=== PATIENT | female | born 1975 | race Caucasian/White ===

== ENCOUNTER 2017-08-25 11:34 | Outpatient (CLI) | payer OTHER | END 2017-08-25 15:36 | disposition home or self-care (01) | LOC: NUCLEAR 11:34 | DX: M88.9 Osteitis deformans of unspecified bone (principal); C7B.03 Secondary carcinoid tumors of bone | CPT/HCPCS: 78306; A9503 ==

== ENCOUNTER 2017-11-04 10:20 | Emergency (ER) | payer OTHER ==
[~2017-11-04] VITALS: Ht 149.9 cm; Wt 68.0 kg
[2017-11-04] MEDS ORDERED: LEVSIN0.125 MG (10:35)
[2017-11-04] MEDS ORDERED: PROTONIX40 MG (10:35)
== END 2017-11-04 21:33 | disposition home or self-care (01) ==
LOC: ER 10:20
DX: D25.9 Leiomyoma of uterus, unspecified (principal); R10.2 Pelvic and perineal pain

== ENCOUNTER 2019-01-11 11:57 | Outpatient (CLI) | payer OTHER ==
[~2019-01-11 11:57] MED LIST: LEVSIN0.125 MG; PROTONIX40 MG
== END 2019-01-11 14:31 | disposition home or self-care (01) ==
LOC: RAD 11:57
DX: J44.1 Chronic obstructive pulmonary disease with (acute) exacerbation (principal)